=== PATIENT | female | born 1960 | race Two or more races ===

== ENCOUNTER 2021-03-01 14:39 | Outpatient (CLI) | payer OTHER | END 2021-03-01 14:48 | disposition home or self-care (01) | LOC: LAB 14:39 | PROVIDERS: ATTEND Internal Medicine | DX: Z03.818 Encounter for observation for suspected exposure to other biological agents ruled out (principal) ==

== ENCOUNTER 2023-01-23 09:28 | Outpatient (CLI) | payer OTHER | END 2023-01-23 09:33 | disposition home or self-care (01) | LOC: SONOGRAMA 09:28 | PROVIDERS: ATTEND Pathology Anatomic Pathology & Clinical Pathology | DX: D34 Benign neoplasm of thyroid gland (principal); E04.9 Nontoxic goiter, unspecified ==